=== PATIENT | female | born 1965 | race Caucasian/White ===

== ENCOUNTER 2020-07-30 06:40 | Day surgery (SDC) | payer OTHER ==
[~2020-07-30] VITALS: Ht 165.1 cm; Wt 79.4 kg
[~2020-07-30 06:40] MED LIST: AMOXICILLIN500 MG PO; FLUARIX QUADRIV1 INJ IM; NAPROSYN500 MG PO; VENLAFAXINE75 M2 PO; WALKING BOOT; WELLBUTRIN150 M1 PO
[2020-07-30 09:10] VITALS: BP 117/72
--- NOTE | 2020-08-08 08:50 | NUR ---
COLON SCREENING RESULTS PROVIDED PER PHYSICIAN NOTES; NORMAL COLONOSCOPY RECOMMEND REPEAT IN 10 YEARS OR SOONER IF NEEDED. PATIENT VERBALIZED UNDERSTANDING AND NO CONCERNS VOICED.
== END 2020-07-30 09:25 | disposition home or self-care (01) ==
LOC: ENDO 06:40
PROVIDERS: ATTEND Surgery
DX: Z12.11 Encounter for screening for malignant neoplasm of colon (principal); Z20.828 Contact with and (suspected) exposure to other viral communicable diseases